=== PATIENT | female | born 1960 | race American Indian/Alaskan Native ===

== ENCOUNTER 2018-03-28 20:20 | Emergency (ER) | payer MEDICARE ==
--- NOTE | 2018-03-28 21:06 | Emergency Department Report ---
Blank Doc - Documentation Documentation: 57 y.o. female presents to ER with chest discomfort radiating to left shoulder. Chest discomfort is a burning sensation. Patient states she started having indigestion while eating dinner at [employer]. PMH: HIV, CAD, DM, HTN, and dialysis cc nausea, vomiting, and sharp abdominal pain EKG & Labs ordered MSE complete Main ED for further evaluation.
[2018-03-28 21:57] LABS: Basophils # (Auto) 0.1 K/mm3 (0.0-0.1); Basophils % (Auto) 1.5 % (0.0-1.8); Eosinophils # (Auto) 0.2 K/mm3 (0.0-0.4); Eosinophils % (Auto) 3.9 % (0.0-4.3); Hematocrit 29.2 % (30.3-42.9); Hemoglobin 9.9 gm/dl (10.1-14.3); Lymphocytes # (Auto) 1.6 K/mm3 (1.2-5.4); Lymphocytes % (Auto) 33.5 % (13.4-35.0); Mean Corpuscular HGB Conc 34 % (30-34); Mean Corpuscular Volume 98 fl (79-97); Monocytes # (Auto) 0.6 K/mm3 (0.0-0.8); Monocytes % (Auto) 11.9 % (0.0-7.3); Platelet Count 137 K/mm3 (140-440); Red Blood Count 2.97 M/mm3 (3.65-5.03); Red Cell Distribution Width 17.5 % (13.2-15.2)
--- NOTE | 2018-03-28 22:03 | Emergency Department Report ---
ED Chest Pain HPI - General Chief Complaint: Chest Pain Stated Complaint: CHEST PAIN Time Seen by Provider: 03/28/18 20:59 Source: patient Mode of arrival: Ambulatory Limitations: No Limitations - History of Present Illness Initial Comments: Mrs. English is a very pleasant 57-year-old female with history of NC, coronary artery disease status post 4 vessel CABG last summer at [place] who presents with indigestion after eating at local [employer]. She has severe indigestion 10 out of 10 heartburn sensation shortly after eating. She was concerned because her heart attack presented the same way. She currently is chest pain-free. She denies shortness of breath. Denies vomiting. No headache or fever. She feels well enough to go home at this time. She desires to go home. Past medical history includes asthma, COPD, HIV, hypertension, end-stage renal disease on hemodialysis for the last 10 years. She receives dialysis at [facility]. Her sausage stuffer is [place] physician Dr. Kirk. She had echocardiogram 2 months ago which was normal according to her report. Over the last 2 months she's had increased foot swelling which is new for her. MD Complaint: chest pain -: Sudden, This evening Onset: during rest Pain Location: substernal Pain Radiation: none Severity: severe Severity scale (0 -10): 7 Quality: similar to prior NC, other (heartburn) Consistency: now resolved Improves With: nothing Worsens With: nothing - Related Data Home Medications Medication Instructions Recorded Confirmed Last Taken Gabapentin 100 mg PO TID 11/11/12 02/14/16 1 Day Ago ~02/13/16 100 Omeprazole [Prilosec] 40 mg PO QDAY 11/11/12 02/14/16 1 Day Ago ~02/13/16 40 Sevelamer Carbonate [Renvela] 800 mg PO TID 11/11/12 02/14/16 1 Day Ago ~02/13/16 800 amLODIPine [Norvasc] 10 mg PO DAILY 11/11/12 02/14/16 1 Day Ago ~02/13/16 10 lamiVUDine [Epivir Hbv] 150 mg PO BID 11/11/12 02/14/16 1 Day Ago ~02/13/16 150 PARoxetine CR (NF) [Paxil (Nf)] 10 mg PO QAM 09/26/13 02/14/16 1 Day Ago ~02/13/16 10 Carvedilol [Coreg] 25 mg PO BID 02/14/16 02/14/16 1 Day Ago ~02/13/16 25 Darunavir [Prezista] 600 mg PO BID 02/14/16 02/14/16 1 Day Ago ~02/13/16 600 Fluconazole [Diflucan TAB] 100 mg PO QDAY 02/14/16 02/14/16 1 Day Ago ~02/13/16 100 Fluticasone [Flonase] 2 spray NS QDAY 02/14/16 02/14/16 1 Day Ago ~02/13/16 2 Ritonavir [Norvir] 100 mg PO BID 02/14/16 02/14/16 1 Day Ago ~02/13/16 100 Tenofovir [Viread] 300 mg PO 1XW 02/14/16 02/14/16 1 Week Ago ~02/07/16 300 Timolol Maleate/Pf [Timoptic 0.25% 1 each OP DAILY 02/14/16 02/14/16 1 Day Ago Ocudose Drop] ~02/13/16 1 Tiotropium [Spiriva] 18 mcg PO DAILY 02/14/16 02/14/16 1 Day Ago ~02/13/16 2 cycloSPORINE [Restasis 0.05%] 1 drop OP BID 02/14/16 02/14/16 1 Day Ago ~02/13/16 1 Previous Rx's Medication Instructions Recorded Last Taken Type Abacavir [Ziagen TAB] 300 mg PO BID tablet 02/15/16 Unknown Rx Atenolol [Tenormin] 50 mg PO DAILY tablet 02/15/16 Unknown Rx Cholecalciferol Vit D3 [Vitamin D3] 5,000 unit PO We tablet 02/15/16 Unknown Rx hydrALAZINE [Apresoline TAB] 50 mg PO BID tablet 02/15/16 Unknown Rx levoFLOXacin [Levaquin TAB] 500 mg PO Q48H #3 tablet 02/15/16 Unknown Rx metroNIDAZOLE [Flagyl TAB] 500 mg PO Q8HR #42 tablet 02/15/16 Unknown Rx Allergies Allergy/AdvReac Type Severity Reaction Status Date / Time aspirin Allergy Vomiting Verified 11/11/12 18:23 lisinopril Allergy Shortness Verified 09/26/13 15:47 of Breath Heart Score - HEART Score History: Highly suspicious EKG: Normal Age: 45-65 Risk factors: > 3 risk factors or hx of atherosclerotic disease Troponin: < normal limit HEART Score: 5 ED Review of Systems ROS: Stated complaint: CHEST PAIN Other details as noted in HPI Comment: All other systems reviewed and negative Constitutional: denies: fever, malaise Respiratory: denies: cough Cardiovascular: chest pain ED Past Medical Hx - Past Medical History Previous Medical History?: Yes Hx Hypertension: Yes Hx Congestive Heart Failure: No Hx Diabetes: No Hx Renal Disease: Yes Hx Asthma: Yes Hx COPD: Yes Hx HIV: Yes Additional medical history: heart murmur, Neuropathy - Surgical History Past Surgical History?: Yes Additional Surgical History: left upper arm fistula for dialysis. left ovary r emoval. CABGx4 - Family History Family history: CAD/NC, diabetes - Social History Smoking Status: Current Every Day Smoker Substance Use Type: Marijuana - Medications Home Medications: Home Medications Medication Instructions Recorded Confirmed Last Taken Type Gabapentin 100 mg PO TID 11/11/12 02/14/16 1 Day Ago History ~02/13/16 100 Omeprazole [Prilosec] 40 mg PO QDAY 11/11/12 02/14/16 1 Day Ago History ~02/13/16 40 Sevelamer Carbonate [Renvela] 800 mg PO TID 11/11/12 02/14/16 1 Day Ago History ~02/13/16 800 amLODIPine [Norvasc] 10 mg PO DAILY 11/11/12 02/14/16 1 Day Ago History ~02/13/16 10 lamiVUDine [Epivir Hbv] 150 mg PO BID 11/11/12 02/14/16 1 Day Ago History ~02/13/16 150 PARoxetine CR (NF) [Paxil (Nf)] 10 mg PO QAM 09/26/13 02/14/16 1 Day Ago History ~02/13/16 10 Carvedilol [Coreg] 25 mg PO BID 02/14/16 02/14/16 1 Day Ago History ~02/13/16 25 Darunavir [Prezista] 600 mg PO BID 02/14/16 02/14/16 1 Day Ago History ~02/13/16 600 Fluconazole [Diflucan TAB] 100 mg PO QDAY 02/14/16 02/14/16 1 Day Ago History ~02/13/16 100 Fluticasone [Flonase] 2 spray NS QDAY 02/14/16 02/14/16 1 Day Ago History ~02/13/16 2 Ritonavir [Norvir] 100 mg PO BID 02/14/16 02/14/16 1 Day Ago History ~02/13/16 100 Tenofovir [Viread] 300 mg PO 1XW 02/14/16 02/14/16 1 Week Ago History ~02/07/16 300 Timolol Maleate/Pf [Timoptic 0.25% 1 each OP DAILY 02/14/16 02/14/16 1 Day Ago History Ocudose Drop] ~02/13/16 1 Tiotropium [Spiriva] 18 mcg PO DAILY 02/14/16 02/14/16 1 Day Ago History ~02/13/16 2 cycloSPORINE [Restasis 0.05%] 1 drop OP BID 02/14/16 02/14/16 1 Day Ago History ~02/13/16 1 Abacavir [Ziagen TAB] 300 mg PO BID tablet 02/15/16 Unknown Rx Atenolol [Tenormin] 50 mg PO DAILY tablet 02/15/16 Unknown Rx Cholecalciferol Vit D3 [Vitamin D3] 5,000 unit PO We tablet 02/15/16 Unknown Rx hydrALAZINE [Apresoline TAB] 50 mg PO BID tablet 02/15/16 Unknown Rx levoFLOXacin [Levaquin TAB] 500 mg PO Q48H #3 tablet 02/15/16 Unknown Rx metroNIDAZOLE [Flagyl TAB] 500 mg PO Q8HR #42 tablet 02/15/16 Unknown Rx ED Physical Exam - General Limitations: No Limitations General appearance: alert, in no apparent distress - Head Head exam: Present: atraumatic, normocephalic - Eye Eye exam: Present: normal appearance - ENT ENT exam: Present: mucous membranes moist - Neck Neck exam: Present: normal inspection, full ROM - Respiratory Respiratory exam: Present: normal lung sounds bilaterally. Absent: respiratory distress, wheezes, rales, rhonchi - Cardiovascular Cardiovascular Exam: Present: regular rate, normal rhythm, normal heart sounds, JVD, other (right chest vascath bandage clean dry and intact ). Absent: bradycardia, tachycardia, systolic murmur, diastolic murmur, rubs, gallop - GI/Abdominal GI/Abdominal exam: Present: soft, normal bowel sounds. Absent: distended, tenderness, guarding - Extremities Exam Extremities exam: Present: normal inspection - Back Exam Back exam: Present: normal inspection - Neurological Exam Neurological exam: Present: alert, oriented X3 - Psychiatric Psychiatric exam: Present: normal affect, normal mood - Skin Skin exam: Present: warm, dry, intact, normal color. Absent: rash ED Course Vital Signs 03/28/18 03/28/18 03/28/18 20:30 21:31 21:45 Temperature 98 F Pulse Rate 96 H 86 Respiratory 18 18 13 Rate Blood Pressure 143/81 Blood Pressure 162/108 [Right] O2 Sat by Pulse 100 100 Oximetry 03/28/18 03/28/18 03/28/18 22:00 22:15 22:31 Temperature Pulse Rate 83 81 86 Respiratory 10 L 12 12 Rate Blood Pressure 145/77 145/77 145/77 Blood Pressure [Right] O2 Sat by Pulse 100 100 100 Oximetry KIRSTIE score - Kirstie Score Age > 65: (0) No Aspirin use within the Past 7 Days: (0) No 3 or more CAD Risk Factors: (1) Yes 2 or more Angina events in past 24 hrs: (1) Yes Known CAD with more than 50% Stenosis: (0) No Elevated Cardiac Markers: (0) No ST Deviation Greater than 0.5mm: (0) No KIRSTIE Score: 2 ED Medical Decision Making - Lab Data Result diagrams: 03/28/18 21:45 03/28/18 21:45 Laboratory Results - last 24 hr 03/28/18 21:45 WBC 4.8 RBC 2.97 L Hgb 9.9 L Hct 29.2 L MCV 98 H MCH 33 H MCHC 34 RDW 17.5 H Plt Count 137 L Lymph % (Auto) 33.5 [place] % (Auto) 11.9 H Eos % (Auto) 3.9 Baso % (Auto) 1.5 Lymph # 1.6 [place] # 0.6 Eos # 0.2 Baso # 0.1 Seg Neutrophils % 49.2 Seg Neutrophils # 2.4 - EKG Data 03/28/18 22:02 EKG obtained 2025 Sinus tachycardia rate 100 beats a minute axis normal intervals no ST-T signs of ischemia no ST elevation no significant Q waves - Medical Decision Making . Brother presents with indigestion after eating. EKG without ischemic changes. Troponin level normal. She is currently chest pain free. She desires to be discharged. I spoke with [place] physician Dr. Sloan who will arrange f/u with her PCP on Sunday. Considering recent CABG, I do not suspect acute infarct or angina. However, . Brothers and family member will call 911 if symptoms recur. Critical care attestation.: If time is entered above; I have spent that time in minutes in the direct care of this critically ill patient, excluding procedure time. ED Disposition Clinical Impression: Chest pain, Indigestion Disposition: DC-01 TO HOME OR SELFCARE Is pt being admited?: No Does the pt Need Aspirin: No Condition: Stable Instructions: Chest Pain (ED) Referrals: PRIMARY CARE, [Referring] - 3-5 Days
[2018-03-28 22:12] LABS: Calcium 8.4 mg/dL (8.4-10.2)
[2018-03-28 22:33] VITALS: BP 145/77
== END 2018-03-28 23:12 | disposition home or self-care (01) ==
LOC: ED 20:20
DX: K30 Functional dyspepsia (principal); I10 Essential (primary) hypertension; J44.9 Chronic obstructive pulmonary disease, unspecified; G62.9 Polyneuropathy, unspecified; F17.200 Nicotine dependence, unspecified, uncomplicated; F12.90 Cannabis use, unspecified, uncomplicated; Z88.6 Allergy status to analgesic agent; Z88.8 Allergy status to other drugs, medicaments and biological substances
CPT/HCPCS: 36415; 80048; 84484; 85025; 93005; 93010; 99284